=== PATIENT | female | born 1955 | race Caucasian/White ===

== ENCOUNTER → 2020-03-30 | Outpatient (CLI) | payer MEDICARE, OTHER ==
[~2020-03-30] MED LIST: ASCO60LO PO; CALC500T54 PO; CRESTOR5 MG PO; CYAN50LO PO; GARL1TAB2 PO; LACT1CAP6 PO; LUTE6CAP3 PO; MAGN250T10 PO; MULT10VI3 IV; OMEG1CAP6 PO; TURM1TAB PO; UBID10CA5 PO; [UNRECOGNIZED DRUG - OTHER]; [UNRECOGNIZED DRUG - OTHER]; [UNRECOGNIZED DRUG - OTHER]; [UNRECOGNIZED DRUG - OTHER]; collagen
== END | disposition home or self-care (01) ==
LOC: LAB 12:26
PROVIDERS: ATTEND Registered Nurse
DX: Z01.818 Encounter for other preprocedural examination (principal); Z11.59 Encounter for screening for other viral diseases
CPT/HCPCS: 36415; U0003

== ENCOUNTER → 2020-04-01 | Day surgery (SDC) | payer MEDICARE, OTHER ==
[~2020-04-01] MED LIST changes: +IPRATRPIUM/ALBUTEROL 0.5/2.5MG 3 ML NEBU. NEB PRN; +IV RINGERS SOLUTION,LACTATED 1,000 ML IV SCH; +ONDANSETRON PF 4 MG/2 ML VIAL. IV PRN; +PROPOFOL 10,000 MCG/ML (20ML) VIAL IV ONE
[2020-04-01 10:02] VITALS: BP 126/69
== END | disposition home or self-care (01) ==
LOC: SURG 07:27
PROVIDERS: ATTEND Internal Medicine Gastroenterology
DX: Z12.11 Encounter for screening for malignant neoplasm of colon (principal); K63.89 Other specified diseases of intestine; K64.8 Other hemorrhoids; K29.70 Gastritis, unspecified, without bleeding; E78.00 Pure hypercholesterolemia, unspecified; Z90.49 Acquired absence of other specified parts of digestive tract; Z88.8 Allergy status to other drugs, medicaments and biological substances; Z79.899 Other long term (current) drug therapy
CPT/HCPCS: G0105; J2704; J7120; 45378

== ENCOUNTER 2021-09-04 19:01 | Emergency (ER) | payer MEDICARE, OTHER ==
[~2021-09-04] VITALS: Ht 154.9 cm; Wt 59.3 kg
[~2021-09-04 19:01] MED LIST changes: -ASCO60LO PO; +ASCO60LO5 PO; -IPRATRPIUM/ALBUTEROL 0.5/2.5MG 3 ML NEBU. NEB PRN; -IV RINGERS SOLUTION,LACTATED 1,000 ML IV SCH; -ONDANSETRON PF 4 MG/2 ML VIAL. IV PRN; -PROPOFOL 10,000 MCG/ML (20ML) VIAL IV ONE
[2021-09-04 19:33] VITALS: BP 148/86
--- NOTE | 2021-09-04 19:33 | PHYS DOC ---
Adult General Chief Complaint Chief Complaint: OTHER COMPLAINTS HPI HPI Patient is an otherwise healthy 66-year-old female who presents with a chief complaint of left arm and right arm tingling intermittently. States she got her flu shot last week in her right arm and had some tingling in her right arm for couple days got her Covid booster 3 days ago and had some tingling in her left arm for 3 days. 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 Denies any recent traumas, illnesses, fevers, chest pain, shortness of breath, abdominal pain, nausea, vomiting, diarrhea. Denies any pain or trouble walking. Denies any new numbness/weakness/tingling. Denies any paralysis. Denies any exercise intolerance or trouble breathing. States currently she is asymptomatic but just wanted to be sure. Denies any alcohol or drug use. Review of Systems Review of Systems Review of systems otherwise unremarkable except noted in HPI Allergies Allergies Allergies Coded Allergies Type Severity Reaction Last Updated Verified neomycin Allergy Unknown redness, itchy 04/01/20 Yes Physical Exam Physical Exam Constitutional: Well developed, well nourished, no acute distress, non-toxic appearance. [] HENT: Normocephalic, atraumatic, bilateral external ears normal, oropharynx moist, no oral exudates, nose normal. [] Eyes: PERRLA, EOMI, conjunctiva normal, no discharge. [] Neck: Normal range of motion, no tenderness, supple, no stridor. [] Cardiovascular:Heart rate regular rhythm, no murmur [] Lungs & Thorax: Bilateral breath sounds clear to auscultation [] Abdomen: Bowel sounds normal, soft, no tenderness, no masses, no pulsatile masses. [] Skin: Warm, dry, no erythema, no rash. [] Back: No tenderness, no CVA tenderness. [] Extremities: No tenderness, no cyanosis, no clubbing, ROM intact, no edema. [] Neurologic: Alert and oriented X 3, normal motor function, normal sensory function, able to sit, stand and walk without issue no focal deficits noted. [] Psychologic: Affect normal, judgement normal, mood normal. [] EKG EKG [] Radiology/Procedures Radiology/Procedures [] Heart Score C/O Chest Pain: No Risk Factors: Risk Factors: DM, Current or recent (<one month) smoker, HTN, HLP, family history of CAD, obesity. Risk Scores: Risk Factors: DM, Current or recent (<one month) smoker, HTN, HLP, family history of CAD, obesity. Course & Med Decision Making Course & Med Decision Making Patient is a 66-year-old female who presents after getting a vaccination with tingling in her arm Vital signs not concerning. Physical exam noted above. Patient asymptomatic in the ED with no focal neurologic deficits and in no acute distress. Gave reassurance. Advised to follow-up in 1 with primary care physician. Gave return precautions to the ED. Patient grateful, verbalized understanding and agree with plan of discharge. [] Dragon Disclaimer Dragon Disclaimer This electronic medical record was generated, in whole or in part, using a voice recognition dictation system. Departure Departure: Impression: Primary Impression: Tingling of right upper extremity Additional Impression: Tingling of left upper extremity Disposition: 01 HOME / SELF CARE / HOMELESS Condition: GOOD Referrals: KYLE REAL (PCP) Additional Instructions: Thank you for coming into the emergency department tonight allowing us to take care of you. As we discussed your physical exam and vital signs as well as history are not concerning for anything emergent at this time but that does not mean that there is not something going on as we discussed. Is very important you follow-up in the morning with your primary care physician to discuss your ED visits and concerns. Please come back with new or concerning symptoms as we discussed. Problem Qualifiers RADHA AMIN MD Sep 04, 2021 19:33
== END 2021-09-04 20:27 | disposition home or self-care (01) ==
LOC: ER 19:01
DX: R20.2 Paresthesia of skin (principal); Z88.1 Allergy status to other antibiotic agents
CPT/HCPCS: 99281